=== PATIENT | male | born 1975 | race Caucasian/White ===

== ENCOUNTER 2016-12-19 12:25 | Inpatient (IN) | payer MEDICAID, OTHER ==
[2016-12-19 14:42] LABS: BASO % 0.7 % (0.0-2.0); EOS % 0.3 % (0.0-4.0); HEMOGLOBIN 13.7 g/dL (12.0-18.0); LYMPH # 0.9 K/uL (1.0-4.3); LYMPH % 19.3 % (20.0-40.0); MEAN CELL VOLUME 90.6 fL (80.0-94.0); MEAN CORPUSCULAR HEMOGLOBIN 30.9 pg (27.0-31.0); MEAN CORPUSCULAR HGB CONC 34.1 g/dL (33.0-37.0); MEAN PLATELET VOLUME 6.6 fL (7.2-11.7); MONO # 0.5 K/uL (0.0-0.8); MONO % 11.1 % (0.0-10.0); NEUT % 68.6 % (50.0-75.0); NRBC % 0.2 % (0.0-2.0); RBC 4.43 Mil/uL (4.40-5.90); WHITE BLOOD COUNT 4.4 K/uL (4.8-10.8)
[2016-12-19 14:44] LABS: SQUAMOUS EPITHIAL < 1 /hpf (0-5); URINE BILIRUBIN NEGATIVE (NEGATIVE); URINE BLOOD NEGATIVE (NEGATIVE); URINE CLARITY Clear (Clear); URINE COLOR Colorless (YELLOW); URINE GLUCOSE (UA) 3+ mg/dL (Normal); URINE LEUKOCYTE ESTERASE NEG Leu/uL (Negative); URINE NITRATE NEGATIVE (NEGATIVE); URINE PROTEIN NEGATIVE (NEGATIVE); URINE UROBILINOGEN NORMAL mg/dL (0.2-1.0)
[2016-12-19 15:03] LABS: BARBITURATES, UR NEGATIVE (NEGATIVE)
[2016-12-19 15:04] LABS: BENZODIAZEPINES, UR NEGATIVE (NEGATIVE)
[2016-12-19 15:07] LABS: OPIATES, UR NEGATIVE (NEGATIVE); PHENCYCLIDINE, UR NEGATIVE (NEGATIVE)
[2016-12-19 15:08] LABS: ALBUMIN 4.2 g/dL (3.5-5.0)
[2016-12-19 15:11] LABS: ALB/GLOB RATIO 1.4 (1.0-2.1); AST/SGOT 82 U/L (17-59); GFR AFRICAN-AMERICAN > 60; GFR NON-AFRICAN AMERICAN > 60
[2016-12-19 15:12] LABS: ALT/SGPT 83 U/L (21-72); BLOOD UREA NITROGEN 5 mg/dL (9-20); CALCIUM 8.9 mg/dl (8.6-10.4)
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
--- NOTE | 2016-12-19 16:06 | PCM.BM ---
<Osiris Clarke - Last Filed: 12/19/16 16:04> Treatment Plan Problems - Problems identified on initial assessmt ALCOHOL ABUSE Date Initiated: 12/19/16 Time Initiated: 16:06 Assessment reference: NA Status: Active POOR COPING Date Initiated: 12/19/16 Time Initiated: 16:06 Assessment reference: NA Status: Active Treatment assets and liabiliti Patient Assests: motivated, ADL independent, cognitively intact Patient Liabilities: live alone, substance abuse - Milieu Protocol Maintain good personal hygiene: daily Encourage regular showers, daily Remind patient to perform daily oral care, daily Assist patient to perform ADL's Maintain personal safety: every shift Educate patient to report safety concerns to staff, every shift Monitor environment for contraband/sharps Medication safety: Monitor for expected outcome, potential side effects: every shift, Assess barriers to learning: every shift, Assess readiness for medication education: every shift <Stacey Gonzalez - Last Filed: 12/20/16 22:05> - Diagnosis (1) Alcohol use disorder, severe, dependence Status: Acute Interventions: 12/20/16 22:05 * Assess 7x/week regarding severity of withdrawal * Educate regarding risks, benefits, side effects and alternatives of medications * Use Motivational Interviewing for abstinence * Use CBT for relapse prevention * Medication management for withdrawal symptoms * Encourage medication assisted treatment *
[2016-12-20] MEDS: Multiple Vitamins Tab PO SCH (09:30)
--- NOTE | 2016-12-20 16:28 | PCM.PSYCH ---
Initial Psychiatric Evaluation - Initial Psychiatric Evaluation Type of Admission: Voluntary Legal Status: Capacity Chief Complaint (in patient's own words): 'I came seeking alcohol detox' History of Present Illness and Precipitating Events: Patient is a 41-year-old male, who is unemployed and lives alone, came to the hospital seeking alcohol detox. Patient states that he has been drinking a fifth of vodka every day for past 2 weeks, with his last drink being 2 days ago. He states that yesterday he was anxious, and had sweats. He denies any other symptoms. He denies any hallucinations, paranoia, and suicidal ideations. Patient states that he smokes 1 pack of cigarettes per day. He denies abusing any other substances. Patient reports an extensive history of drinking on average a half of fifth of vodka daily since 2010. He states that his longest sobriety period since 2010 has been 13 days. Patient states that he used to drink wine and beer occasionally in his 20s, but since 2010 he has started drinking vodka heavily. Patient denies any past psychiatric history, or psychiatric hospitalizations. Patient denies any detox or rehab history. Patient denies any family psychiatric history. Past medical history denies Current Medications: Active Medications Generic Name Dose Route Start Last Admin Trade Name Freq PRN Reason Stop Dose Admin Chlordiazepoxide 25 mg 12/19/16 18:00 12/20/16 11:47 Librium PO 12/23/16 17:59 25 mg Q6 MIGUEL Administration Taper Chlordiazepoxide 25 mg 12/19/16 18:00 12/19/16 22:06 Librium PO 25 mg Q4H PRN Administration Alcohol Withdrawal Clonidine HCl 0.1 mg 12/19/16 17:30 Catapres PO Q4H PRN Symptoms of alcohol withdrawl Folic Acid 1 mg 12/20/16 10:00 12/20/16 09:30 Folic Acid PO 1 mg DAILY MIGUEL Administration Hydroxyzine HCl 50 mg 12/19/16 17:30 Atarax PO Q6H PRN Anxiety Ibuprofen 600 mg 12/19/16 17:30 Motrin Tab PO Q6H PRN Pain, moderate (4-7) Multivitamins 1 tab 12/20/16 10:00 12/20/16 09:30 Hexavitamin PO 1 tab DAILY MIGUEL Administration Nicotine 1 patch 12/20/16 10:00 12/20/16 09:33 Nicoderm Cq TD 1 patch DAILY MIGUEL Administration Thiamine HCl 100 mg 12/20/16 10:00 12/20/16 09:30 Vitamin B1 Tab PO 100 mg DAILY MIGUEL Administration Trazodone HCl 100 mg 12/19/16 22:00 12/19/16 22:06 Desyrel PO 100 mg HS PRN Administration Insomnia Past Psychiatric History - Past Psychiatric History Previous Treatment History: None Pertinent Medical Hx (Current Medical&Sleep Prob, Allergies): Allergies Allergy/AdvReac Type Severity Reaction Status Date / Time No Known Allergies Allergy Unverified 12/19/16 12:33 No Known Home Med 12/19/16 Review of Systems - Constitutional Constitutional: Sweats - Psychiatric Psychiatric: Anxiety Mental Status Examination - Personal Presentation Personal Presentation: Looks stated age - Affect Affect: Other (Appropriate) - Motor Activity Motor Activity: Calm - Reliability in Providing Information Reliability in Providing Information: Good - Speech Speech: Organized, Relevant - Mood Mood: Neutral - Formal Thought Process Formal Thought Process: No Impairment - Cognitive Functions Orientation: Person, Place, Situation, Time Sensorium: Alert Attention/Concentration: Attentive Judgement: Intact, as evidence by: Insight regarding need for hospitalization - Risk Risk: Withdrawal - Strength & Assets Inventory Strength & Assets Inventory: Cooperative DSM 5 DX - DSM 5 DSM 5 Diagnosis: alcohol use disorder - severe alcohol withdrawal - Recommended/Plan of Treatment Treatment Recommendations and Plan of Treatment: Librium detox Gabapentin for augmentation As needed meds and vitamins Attend groups and activities [facility] for abstinence and CBT for relapse prevention Support and psychoeducation Consider and encourage MAT Refer to after care - pt states that he will attend outpatient rehab 33 min Projected ELOS: 5 days
[2016-12-21 09:21] LABS: ALBUMIN 4.1 g/dL (3.5-5.0)
[2016-12-21 09:24] LABS: ALB/GLOB RATIO 1.5 (1.0-2.1); AST/SGOT 78 U/L (17-59); GFR AFRICAN-AMERICAN > 60; GFR NON-AFRICAN AMERICAN > 60
[2016-12-21 09:25] LABS: ALT/SGPT 82 U/L (21-72); BLOOD UREA NITROGEN 6 mg/dL (9-20); CALCIUM 9.3 mg/dl (8.6-10.4)
[2016-12-21] MEDS: Multiple Vitamins Tab PO SCH (10:06)
--- NOTE | 2016-12-21 14:26 | PCM.PYCHPN ---
Psychiatric Progress Note - Psychiatric Progress Note Patient seen today, length of contact: 15 min Patient Chief Complaint: 'I am feeling better today' Problems Identified/Issues Discussed: Patient is seen, evaluated, and case discussed with staff. Patient states that he is doing well today. He denies any symptoms. He denies any hallucinations, and suicidal ideations. Patient is compliant with all medications, and denies any side effects. Symptoms are improving, but needs time to stabilize. Support and psychoeducation given. Medication Change: Yes (detox changes daily) Medical Record Reviewed: Yes Mental Status Examination - Cognitive Function Orientation: Person, Place, Situation, Time Memory: Intact Attention: WNL Concentration: WNL Association: Loose Fund of Knowledge: Poor - Mood Mood: Neutral - Affect Affect: Other (Appropriate) - Speech Speech: Appropriate - Formal Thought Process Formal Thought Process: No Impairment - Suicidal Ideation Suicidal Ideation: No - Homicidal Ideation Homicidal Ideation: No Goal/Treatment Plan - Goal/Treatment Plan Need for Continued Stay: Discharge may exacerbated symptoms Progress Toward Problem(s) and Goals/Treatment Plan: Librium detox Gabapentin for augmentation As needed meds and vitamins Attend groups and activities [place] for abstinence and CBT for relapse prevention Support and psychoeducation Consider and encourage MAT Refer to after care - pt states that he will attend outpatient rehab and AA meetings
[2016-12-22] MEDS: Multiple Vitamins Tab PO SCH (09:21)
--- NOTE | 2016-12-22 15:06 | PCM.PYCHPN ---
Psychiatric Progress Note - Psychiatric Progress Note Patient seen today, length of contact: 15 min Patient Chief Complaint: I'm feeling better Problems Identified/Issues Discussed: Patient seen. Chart reviewed. Case discussed with the staff. Issues related to illness and treatment were discussed with the patient. Reported compliant with treatment with no adverse affects. Tolerating treatment very well. At the time of evaluation, patient was awake alert oriented 3, had no delusions, no auditory or visual hallucinations, no suicidal ideations or homicidal ideations. Medical Problems: None reported Diagnostic Results: Reviewed Medication Change: No Medical Record Reviewed: Yes Mental Status Examination - Cognitive Function Orientation: Person, Place, Situation, Time Memory: Intact Attention: WNL Concentration: WNL Association: WN Fund of Knowledge: [facility] Decription of patient's judgement and insights: Fair - Mood Mood: Neutral - Affect Affect: Other (Appropriate) - Speech Speech: Appropriate - Formal Thought Process Formal Thought Process: No Impairment Psychotic Thoughts and Behaviors: None - Suicidal Ideation Suicidal Ideation: No - Homicidal Ideation Homicidal Ideation: No Goal/Treatment Plan - Goal/Treatment Plan Need for Continued Stay: Remain at risks for inpatient hospitalization, Discharge may exacerbated symptoms, Severe functional impairment Progress Toward Problem(s) and Goals/Treatment Plan: Improving Patient education Supportive therapy Continue treatment as before Wants to go to [facility] after discharge from the hospital for follow-up care. Estimated Date of D/C: 12/24/16 - Smoking Cessation Smoking Cessation Initiated: Yes
--- NOTE | 2016-12-23 09:11 | PCM.PYCHDC ---
Mental Status Examination - Mental Status Examination Orientation: Person Discharge Summary - Discharge Note Consultations:: List each consultation separately and include: 1. Reason for request. 2. Findings. 3. Follow-up Summary of Hospital Course include:: 1. Description of specific treatment plan utilized for patients during their course of treatmen. 2. Summarize the time- course for resolution of acute symptoms and/or regressed behaviors. 3. Describe issues identified and worked on during hospitalization. 4. Describe medication utilized. 5. Describe medical problems identified and treated. 6. Reassessment of suicide risk Summary of Hospital Course: Patient is a 41-year-old male, who is unemployed and lives alone, came to the hospital seeking alcohol detox. Patient states that he has been drinking a fifth of vodka every day for past 2 weeks, with his last drink being 2 days ago. He states that yesterday he was anxious, and had sweats. He denies any other symptoms. He denies any hallucinations, paranoia, and suicidal ideations. Patient states that he smokes 1 pack of cigarettes per day. He denies abusing any other substances. Patient reports an extensive history of drinking on average a half of fifth of vodka daily since 2010. He states that his longest sobriety period since 2010 has been 13 days. Patient states that he used to drink wine and beer occasionally in his 20s, but since 2010 he has started drinking vodka heavily. Patient denies any past psychiatric history, or psychiatric hospitalizations. Patient denies any detox or rehab history. Patient denies any family psychiatric history. Past medical history denies - Diagnosis (1) Alcohol use disorder, severe, dependence Current Visit: Yes Status: Acute - Final Diagnosis (DSM 5) Condition upon Discharge: STABLE Disposition: HOME/ ROUTINE Follow-up Treatment Plan: Librium detox Gabapentin for augmentation As needed meds and vitamins Attend groups and activities [place] for abstinence and CBT for relapse prevention Support and psychoeducation Consider and encourage MAT Refer to after care - pt states that he will attend outpatient rehab and AA meetings Prescriptions/Medication Reconciliation: Gabapentin [Neurontin] 300 mg PO TID #90 cap traZODone [Desyrel] 100 mg PO HS PRN #30 tab PRN Reason: Insomnia
[2016-12-23] MEDS: Multiple Vitamins Tab PO SCH (10:17)
[2016-12-23 10:54] VITALS: BP 100/69; PULSE 84; RESP 16; TEMP 97.8; O2SAT 99
== END 2016-12-23 11:00 | disposition home or self-care (01) | DRG 895 ==
LOC: C.ER 12:25 → C.7D 15:33
PROVIDERS: ADMIT Psychiatry & Neurology Psychiatry; ATTEND Psychiatry & Neurology Psychiatry
PROC: HZ2ZZZZ Detoxification Services for Substance Abuse Treatment (ICD-10-PCS; principal; 2016-12-19)
PROC: HZ46ZZZ Group Counseling for Substance Abuse Treatment, Psychoeducation (ICD-10-PCS; 2016-12-19)
PROC: HZ59ZZZ Individual Psychotherapy for Substance Abuse Treatment, Supportive (ICD-10-PCS; 2016-12-19)
DX: F10.230 Alcohol dependence with withdrawal, uncomplicated (principal); F17.210 Nicotine dependence, cigarettes, uncomplicated; Z90.49 Acquired absence of other specified parts of digestive tract